=== PATIENT | female | born 1990 | race Caucasian/White ===

== ENCOUNTER 2017-05-22 15:48 | Emergency (ER) | payer OTHER ==
--- NOTE | 2017-05-22 20:21 | ED ---
HPI Chest Pain - HPI Summary HPI Summary: Patient is an otherwise healthy 27-year-old female who presents from urgent care with chief complaint of pleuritic chest pain worse with inspiration since 3 days ago. She states the pain is located left lateral inferior chest wall and radiates to the anterior chest wall, worse with inspiration and better with rest. Worse with exertion. Denies any known cardiac history. Family history includes mother with a heart condition which the patient is unable to identify many years ago, but has been asymptomatic since that time. Denies any known WI throughout the family. She states the pain began suddenly, is intermittent, rates a 8 out of 10 in severity with inspiration and a 5 out of 10 at rest. Denies any radiation of pain through to the back and denies any recent illness. Endorses recent travel as early as 5 weeks ago. She uses oral contraceptives , denies smoking, denies calf pain bilaterally or any bilateral edema, erythema or warmth. Denies any other symptoms and states she is otherwise healthy. Has never had a DVT or PE. While she was seen at urgent care, and x-ray of the chest and EKG were performed, all within normal limits. She denies shortness of breath, nausea, vomiting, diarrhea, constipation. - History of Current Complaint Chief Complaint: EDChestWallPain Time Seen by Provider: 05/22/17 19:59 Hx Obtained From: Patient Onset/Duration: Started Days Ago Timing: Constant Initial Severity: Mild Current Severity: Mild Pain Intensity: 0 Pain Scale Used: 0-10 Numeric Chest Pain Location: Left Lateral Chest Pain Radiates: Yes Chest Pain Radiates To:: Other - Left anterior Character: Dull/Aching, Pressure/Squeezing, Sharp/Stabbing Aggravating Factor(s): Exertion, Rest Alleviating Factor(s): Nothing Associated Signs and Symptoms: Positive: Negative - Risk Factors Pulmonary Embolism Risk Factors: Oral Contraceptives TAD Risk Factors: Negative AMI/ACS Risk Factors: Family History - Allergy/Home Medications Allergies/Adverse Reactions: Allergies Allergy/AdvReac Type Severity Reaction Status Date / Time No Known Allergies Allergy Verified 05/22/17 15:54 PMH/Surg Hx/FS Hx/Imm Hx Previously Healthy: Yes - Immunization History Date of Influenza Vaccine: denies Hx Pertussis Vaccination: No Immunizations Up to Date: Yes Infectious Disease History: No Infectious Disease History: Denies: Traveled Outside the [place] in Last 30 Days - Social History Occupation: Student Lives: With Family Alcohol Use: None Hx Substance Use: No Substance Use Type: Reports: None Hx Tobacco Use: No Smoking Status (MU): Never Smoked Tobacco Review of Systems Constitutional: Negative Negative: Fever, Chills, Fatigue, Skin Diaphoresis Eyes: Negative Positive: Chest Pain Negative: Shortness Of Breath, Cough Genitourinary: Negative Positive: no symptoms reported, see HPI Musculoskeletal: Negative Skin: Negative Neurological: Negative Negative: Anxious, Depressed All Other Systems Reviewed And Are Negative: Yes Physical Exam Triage Information Reviewed: Yes Vital Signs On Initial Exam: Initial Vitals Temp Pulse Resp BP Pulse Ox 98.2 F 95 16 149/98 99 05/22/17 15:51 05/22/17 15:51 05/22/17 15:51 05/22/17 15:51 05/22/17 15:51 Vital Signs Reviewed: Yes Appearance: Positive: Well-Appearing, No Pain Distress, Well-Nourished Skin: Positive: Warm, Skin Color Reflects Adequate Perfusion Head/Face: Positive: Normal Head/Face Inspection Eyes: Positive: EOMI, JANI, Conjunctiva Clear Neck: Positive: Supple, Nontender, No Lymphadenopathy Respiratory/Lung Sounds: Positive: Clear to Auscultation, Breath Sounds Present Cardiovascular: Positive: Normal, RRR, Pulses are Symmetrical in both Upper and Lower Extremities. Negative: Leg Edema Left, Leg Edema Right Abdomen Description: Positive: Nontender, No Organomegaly, Soft Musculoskeletal: Positive: Normal, Strength/ROM Intact Neurological: Positive: Sensory/Motor Intact, Alert, Oriented to Person Place, Time, Speech Normal Psychiatric: Positive: Normal, Affect/Mood Appropriate AVPU Assessment: Alert Diagnostics - Vital Signs Vital Signs Temp Pulse Resp BP Pulse Ox 05/22/17 20:08 98.6 F 05/22/17 20:03 12 05/22/17 20:00 138/90 05/22/17 19:46 98.1 F 82 20 125/78 100 05/22/17 15:51 98.2 F 95 16 149/98 99 - Laboratory Result Diagrams: 05/22/17 20:33 05/22/17 20:33 Lab Statement: Any lab studies that have been ordered have been reviewed, and results considered in the medical decision making process. Chest Pain Course/Dx - Course Course Of Treatment: During the course of treatment the patient is evaluated for PE. She is sent here by urgent care to rule out a PE based on symptoms. Labs obtained. CTA obtained. Wells criteria shows a well's score of 3 based on clinical signs of DVT. PE is unlikely with anything less than 4 as a clinical probability. However based on symptoms, recent travel and oral contraceptive use, CTA is obtained. CTA is negative for PE. Labs obtained and all within normal limits including a d-dimer at less than 200. Troponin 0.00. Chest x-ray and EKG reviewed from urgent care and negative. I have discussed the possibility of costochondritis, specifically due to improving symptoms after taking Advil this afternoon. She is encouraged to continue with ibuprofen 60 mg 3 times daily for the next 3-5 days as symptoms persist. However, she is to return to [facility] for follow-up. She is also to return to the ED for any worsening or changing symptoms. She is agreeable to this plan and voices no concerns at this time. - Chest Pain Differential Diagnosis/HQI/PQRI: Chest Wall, Pulmonary Embolism - Diagnoses Provider Diagnoses: Costochondritis Discharge - Discharge Plan Condition: Stable Disposition: HOME Patient Education Materials: Costochondritis (ED) Referrals: [facility] - Alvin COMER [Primary Care Provider] - Additional Instructions: Ibuprofen 600 mg 3 times daily
[2017-05-22 20:45] LABS: ABS Basophils 0 10^3/ul (0-0.2); ABS Eosinophils 0 10^3/ul (0-0.6); ABS Lymphocytes 1.7 10^3/ul (1.0-4.8); ABS Monocytes 0.4 10^3/ul (0-0.8); ABS Neutrophils 1.6 10^3/ul (1.5-7.7); ABS Nucleated RBC 0 10^3/ul; Eosinophil % 1.2 % (0-6); Hematocrit 36 % (35-47); Hemoglobin 12.2 g/dl (12.0-16.0); Lymphocyte % 44.7 % (25-47); Mean Corpuscular HGB Conc 34 g/dl (31-36); Mean Corpuscular Hemoglobin 30 pg (27-31); Mean Corpuscular Volume 88 fL (80-97); Mean Platelet Volume 9 um3 (7.4-10.4); Nucleated Red Blood Cells % 0; Platelet Count 131 10^3/ul (150-450); Red Cell Distribution Width 13 % (10.5-15); White Blood Count 3.8 10^3/ul (3.5-10.8)
[2017-05-22 21:13] LABS: EGFR Non-African American 114.2 (>60)
[2017-05-22] MEDS ORDERED: Iohexol 350* (CONTRAST) 500 ML MDV IV ONE (21:18)
--- NOTE | 2017-05-22 22:01 | RAD ---
INDICATION: Chest pain with inspiration. COMPARISON: None. TECHNIQUE: Multidetector CT images were obtained from the lung apices to the upper abdomen with 58 mL Omnipaque 350 IV contrast. Pulmonary angiogram protocol. Multiplanar reformation including with maximum intensity projection. REPORT: Clear lungs and pleural spaces. Negative for pneumothorax. Negative for thoracic lymphadenopathy. Minimal residual thymic tissue at the anterior mediastinum. Negative for cardiomegaly or pericardial effusion. Unremarkable thoracic aorta. No filling defects are identified from the main to the subsegmental pulmonary arteries to indicate presence of a pulmonary embolism. Unremarkable limited images through the upper abdomen. Negative for thoracic fractures. Negative for suspicious focal osseous lesions. IMPRESSION: No evidence for pulmonary embolism or other acute intrathoracic pathologic process. Negative exam.
[2017-05-22 22:31] VITALS: BP 127/84
== END 2017-05-22 22:32 | disposition home or self-care (01) ==
LOC: ED 15:48
DX: M94.0 Chondrocostal junction syndrome [Tietze] (principal); R07.9 Chest pain, unspecified
CPT/HCPCS: 36415; 71275; 80053; 84484; 85025; 85379; 85652; 86140; 93005; 99283; Q9967